=== PATIENT | male | born 1955 | race Caucasian/White ===

== ENCOUNTER 2017-01-21 21:12 | Inpatient (IN) | payer MEDICAID, SELFPAY ==
[~2017-01-21] VITALS: Ht 165.1 cm; Wt 69.0 kg
[2017-01-21] MEDS ORDERED: RISP2TAB3 PO (21:41)
[2017-01-21] MEDS ORDERED: SERT25TA PO (21:43)
[2017-01-21] MEDS ORDERED: AMBI5TAB PO (21:43)
[2017-01-21] MEDS ORDERED: ATOR1TAB21 PO (21:43)
[2017-01-21] MEDS ORDERED: [UNRECOGNIZED DRUG - OTHER] (21:43)
[2017-01-21] MEDS ORDERED: SENN8.6T54 PO (21:43)
[2017-01-21] MEDS ORDERED: SERT50TA PO (22:07)
[2017-01-22] MEDS ORDERED: MAALOX 30 ML SUSP *UDC PO PRN
[2017-01-22] MEDS ORDERED: MOM 30ML SUSPENSION UDC PO PRN
[2017-01-22 00:19] VITALS: BP 122/71
[2017-01-22] MEDS: PALIPERIDONE 3 MG ER TAB (INVEGA) PO SCH ×3 (01:25→21:12)
[2017-01-22] MEDS: traZODone 50 MG TAB PO PRN ×2 (01:25→21:13)
[2017-01-22] MEDS: ATORVASTATIN 20 MG TAB PO SCH ×2 (01:25→21:12)
[2017-01-22] MEDS: SENOKOT S TAB PO SCH ×3 (01:26→21:12)
[2017-01-22 06:20] VITALS: BP 91/53
[2017-01-22] MEDS: ACETAMINOPHEN TAB 650MG DOSE (2X325MG) PO PRN ×2 (08:12→15:48)
[2017-01-22] MEDS: SERTRALINE HCL 50 MG TAB PO SCH (08:12)
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
[2017-01-22] MEDS ORDERED: OLANZapine 5 MG TAB PO PRN (10:45)
[2017-01-22] MEDS ORDERED: LORazepam 1 MG TAB PO PRN (10:45)
[2017-01-22 18:00] VITALS: BP 97/60
--- NOTE | 2017-01-23 00:05 | HPE ---
DATE OF ADMISSION: 01/21/2017 HISTORY OF PRESENT ILLNESS: Please refer to psychiatric history and evaluation for further details on this admission. This examination and history is intended for medical issues, which may need treatment, followup or consult on this 61-year-old male who was transferred from [facility] ([facility]) after having expressed suicidal ideations. ALLERGIES: No known allergies. PRIMARY CARE PROVIDER: He states he does not have one. SOCIAL HISTORY: He is . He has two children. Ethyl alcohol (EtOH): He has not drank, he states, for years. Quit smoking several years ago. Denies any recreational drug use. PAST MEDICAL HISTORY: 1. He has a speech impairment. He is difficult to understand. 2. He has history of liver cancer. He shows the surgical scar for liver cancer in his left abdomen. 3. Schizophrenia. 4. Depression. 5. Hypercholesterolemia. PAST SURGICAL HISTORY: Surgery for liver cancer. FAMILY HISTORY: Noncontributory. HOME MEDICATIONS: - atorvastatin 20 mg by mouth daily - Colace 100 mg by mouth twice a day - Risperdal 2 mg by mouth twice a day - sertraline 50 mg by mouth daily - Ambien 5 mg by mouth nightly REVIEW OF SYSTEMS: 10-system review was done. Patient was complaining of severe pain in his right knee. He likes to walk and for a week he states he has been getting increasing pain with flexion, extension and weightbearing to the point where he is utilizing a cane. He did have an x-ray at [facility], which was negative. He has no recent history of trauma. Will order an MRI, rule out a tear. PHYSICAL EXAMINATION: 61-year-old cooperative male in no acute distress. Height 65 inches, weight 71 kg, body mass index (BMI) 26. Blood pressure 122/70, pulse 57, respirations 18, temperature 97.6. Patient is alert and oriented times three, has a speech impediment, difficult to understand. Pupils equal and react to light. Extraocular muscles intact. Cornea and sclerae clear. Conjunctivae were normal. No facial asymmetry. Pharynx, tongue and gums pink and moist. Tongue is midline. Neck is supple without lymphadenopathy. No thyromegaly, no goiter. Carotids 2+ without bruit. Chest clear to auscultation without wheeze or retraction. Heart is regular. Abdomen is benign. Bowel sounds positive. Genitourinary/rectal: Not done. Extremities show equal strength, full range of motion. No cyanosis, clubbing or edema. Pain in the right knee. No redness or swelling. Pain with flexion, extension and weightbearing. Peripheral pulses equal and palpable bilaterally. Skin is warm and dry. IMPRESSION/PLAN: 1. Psychiatric plan per psychiatry. 2. History of hypercholesterolemia. 3. Per patient, history of liver cancer with surgery. 4. History of speech impediment. 5. Schizophrenia. 6. Depression. 7. Pain in the right knee. Negative x-ray, will get an MRI. Rule out tear. No other acute medical issues.
[2017-01-23 06:19] VITALS: BP 119/74
[2017-01-23] MEDS: PALIPERIDONE 3 MG ER TAB (INVEGA) PO SCH ×2 (08:12→21:04)
[2017-01-23] MEDS: SERTRALINE HCL 50 MG TAB PO SCH (08:12)
[2017-01-23] MEDS: SENOKOT S TAB PO SCH ×2 (08:12→21:04)
[2017-01-23] MEDS: ACETAMINOPHEN TAB 650MG DOSE (2X325MG) PO PRN ×2 (08:13→17:47)
--- NOTE | 2017-01-23 11:10 | REP ---
MRI right knee without contrast: History: Pain with flexion extension. Question torn meniscus or ligament. Knee pain for 8 days. No comparison radiographs. Technique: Sagittal, axial, and coronal imaging planes utilized. T1, proton density and T2-weighted scans were obtained with and without fat saturation. MRI findings: There is an acute nondisplaced stress fracture in the medial femoral metaphysis with significant surrounding marrow edema and some adjacent extraosseous soft tissue edema. There is a small amount of joint fluid. There is a tiny Carlos's cyst. The patellar and quadriceps tendons are intact. Anterior and posterior cruciate ligaments have an intact appearance. There is no evidence of medial or lateral meniscal tear. Medial and lateral collateral ligamentous complexes appear intact. No articular cartilaginous defect is seen. Impression: Acute stress fracture distal femur involving the medial femoral metaphysis with extensive marrow edema and some adjacent extra osseous soft tissue edema. Small joint effusion. No evidence of internal derangement. Signed by Narciso Dunne MD 01/23/2017 03:04 P
--- NOTE | 2017-01-23 12:13 | MHIPNPDOC ---
[facility] Progress Note Progress Note DATE OF SERVICE: 01/23/17 HISTORY: day 2 of admission for SI with auditory hallucinations. Long h/o AK VITAL SIGNS: See below. NEW TEST RESULTS: . CURRENT MEDICATIONS: See below. MENTAL STATUS EXAMINATION: Patient is a 61-year old male, who is small framed, unshaven, dressed in hospital garb, long moustache, missing teeth, cooperative Speech: Is spontaneous but garbled due to poor dentition and lack of teeth, very hard to understand Language skills are not out of the ordinary but difficult to understand. Thought processes including: goal directed, no delusions Thought content: appropriate. Abstract reasoning, and computation: needs further assessment. Description of associations: needs further assessment. Description of abnormal or psychotic thoughts: having problems with auditory hallucinations that tell them they want to hurt him. He reports 4 voices. pt has suicidal ideation as well. Judgment: limited Insight: very limited. Orientation: needs further assessment Recent and remote memory: fair Attention span and concentration: good Fund of knowledge: limited Mood: euthymic. Affect: congruent. DIAGNOSES: 1. Schizophrenia 2. MDD, recurrent, severe with psychotic features. ASSESSMENT:pt continues to report symptoms consistent with what was stated on admission. Risperidone was changed to Invega, likely in consideration of using Invega Sustenna for stabilization and to reduce risk of overdose. Pt declines any injection and does not like needles. So far the rationale of 1 shot in 30 days versus taking pills everyday has not changed his mind. Pt appears to have limited understanding of everything asked of him. He is smiling and is cooperative with questions. He laughs appropriately. Pt states he has heard voices "all my life" MANAGEMENT PLAN:Will need to contact for collateral information and to help with plan of care. Enc socialization in milieu and group participation. Monitor response to meds with change to Invega. TIME SPENT: minutes. Vital Signs Vital Signs Date Time Temp Pulse Resp B/P (MAP) Pulse Ox O2 Delivery O2 Flow Rate FiO2 01/23/17 06:19 98.1 73 20 119/74 (89) 01/22/17 00:19 99 Room Air Current Medications Current Medications Acetaminophen (Tylenol Tab) 650 mg Q6HP PRN PO HEADACHE or DISCOMFORT Last administered on 01/23/17t 08:13; Start 01/22/17 at 00:00; Stop 02/21/17 at 00: 00 Al Hydrox/Mg Hydrox/Simethicone (Mylanta) 30 ml Q4HP PRN PO HEARTBURN/ INDIGESTION; Start 01/22/17 at 00:00; Stop 02/21/17 at 00:00 Atorvastatin Calcium (Lipitor) 20 mg QHS PO Last administered on 01/22/17 21: 12; Start 01/21/17 at 21:00; Stop 02/20/17 at 20:59 Home Med (Med Rec Complete!) ASDIRECTED XX ; Start 01/21/17 at 22:15; Stop at 22:15; Status DC Lorazepam (Ativan) 1 mg Q8HP PRN PO ANXIETY; Start 01/22/17 at 10:45; Stop 01/29/17 at 10:44 Magnesium Hydroxide (Milk Of Magnesia) 30 ml DAILYPRN PRN PO CONSTIPATION Last administered on 01/23/17 11:50; Start 01/22/17 at 00:00; Stop 02/21/17 at 00: 00 Olanzapine (ZyPREXA) 5 mg Q6HP PRN PO ANXIETY/AGITATION; Start 01/22/17 at 10: 45; Stop 02/21/17 at 10:44 Paliperidone (Invega) 3 mg BID PO Last administered on 01/23/17 08:12; Start 01/21/17 at 21:00; Stop 02/20/17 at 20:59 Senna/Docusate Sodium (Senokot S) 1 tab BID PO Last administered on 01/23/17 08:12; Start 01/21/17 at 21:00; Stop 02/20/17 at 20:59 Sertraline HCl (Zoloft) 50 mg DAILY PO Last administered on 01/23/17 08:12; Start 01/22/17 at 09:00; Stop 02/21/17 at 08:59 Trazodone HCl (Desyrel) 50 mg QHSP PRN PO INSOMNIA Last administered on 21:13; Start 01/22/17 at 00:00; Stop 02/21/17 at 00:00 Allergies Coded Allergies: No Known Allergies (Unverified , 01/21/17) Li Gerber Jan 23, 2017 12:13
--- NOTE | 2017-01-23 13:57 | REP ---
RIGHT KNEE SERIES: AP AND LATERAL VIEWS. History: Pain. Findings: AP and lateral views of the right knee demonstrate clothing artifact on the lateral radiograph. Bones, joints and soft tissues are otherwise unremarkable. IMPRESSION: No acute bony abnormality. Signed by Narciso Dunne MD 01/23/2017 03:07 P
[2017-01-23 18:13] VITALS: BP 115/70
[2017-01-23] MEDS: ATORVASTATIN 20 MG TAB PO SCH (21:04)
[2017-01-23] MEDS: traZODone 50 MG TAB PO PRN (21:04)
[2017-01-24 06:33] VITALS: BP 122/74
[2017-01-24] MEDS: ACETAMINOPHEN TAB 650MG DOSE (2X325MG) PO PRN (08:10)
[2017-01-24] MEDS: SERTRALINE 100 MG TAB PO SCH (08:10)
[2017-01-24] MEDS: SENOKOT S TAB PO SCH ×2 (08:10→20:52)
[2017-01-24] MEDS: PALIPERIDONE 3 MG ER TAB (INVEGA) PO SCH ×2 (08:10→20:52)
--- NOTE | 2017-01-24 08:22 | IPNPDOC ---
Date Seen The patient was seen on 01/24/17. Progress Note PCP: None ATTENDING: Dr. Jose Eduardo Liz HPI:61yoM admitted to [facility] for Schizophrenia, being medically examined today. Pt had reported Rt knee pain on admission. MRI was requested 01/23/17 indicating acute stress fracture. Orthopedics, Dr Ortega was consulted, discussed with Viktoriya Pandya NP who agreed they would see Pt. XR was requested as per orthopedics. Denies any fevers, chills, weakness, fatigue, RODRIGUEZ, CP, SOB, cough, palpitations, abdominal pain, N/V/D or changes in bowel or bladder habits. PMH 1. He has a speech impairment. 2. He has history of liver cancer. He shows the surgical scar for liver cancer in his left abdomen. 3. Schizophrenia. 4. Depression. 5. Hypercholesterolemia. PSH Surgery for liver cancer. PE: GEN: 61yoM, appears older than stated age. No acute distress. Pleasant, interactive. HEENT: Normocephalic, atraumatic. Conjunctiva without injection. Nose midline. No facial asymmetry. Moist mucous membranes. edentulous. CHEST: Regular rate and rhythm, +S1, +S2 LUNGS: Clear to auscultation bilaterally. ABD: Round, soft, non-tender, non-distended. +Bowel sounds throughout. No rebound or guarding. No costovertebral angle tenderness. EXT: Pulses 2+ bilaterally dorsalis pedis and radial. No lower extremity edema appreciated. SKIN: [place], dry, warm. Capillary refill <2sec. No rashes. NEURO: Pt is ambulating with a cane. No focal deficits appreciated. Speech is dysarthric. EKG: pending. MRI Rt Knee 01/23/17 Acute stress fracture distal femur involving the medial femoral metaphysis with extensive marrow edema and some adjacent extra osseous soft tissue edema. Small joint effusion. No evidence of internal derangement. XR Rt knee No acute bony abnormality. A&P: 61yoM admitted to [facility] for Schizophrenia 1. Psych. Plan per Psychiatry. btain baseline EKG to assure the safety of psychiatric medications as they can prolong the QT interval, pending. 2. Dyslipidemia. Continue Lipitor 20 mg daily. 3. Right knee pain. MRI right knee 01/23/17 reviewed. Discussed with orthopedics , Viktoriya Pandya NP. Orthopedics consulted, Dr. Ortega. 4. Follow up. No Primary Care Provider. Will attempt to establish PCP on discharge. 5. Staff member Jean present throughout exam. VS, I&O, 24H, Fishbone Vital Signs/I&O Vital Signs Date Time Temp Pulse Resp B/P (MAP) Pulse Ox O2 Delivery O2 Flow Rate FiO2 01/24/17 06:33 99.6 85 18 122/74 (90) Room Air 01/22/17 00:19 99 Jennifer Latham Jan 24, 2017 08:22
--- NOTE | 2017-01-24 09:09 | CR ---
DATE OF CONSULTATION: 01/24/2017 CHIEF COMPLAINT: Right knee pain. HISTORY OF PRESENT ILLNESS: Mr. Saenz has been [facility] with a diagnosis that includes schizophreni. He complains of knee pain. He has been using a cane. He complains of knee pain going on for approximately a week. He does not recall a specific injury. He has been walking with a cane. He was transferred in from [facility] after expressing suicidal ideation. NO KNOWN ALLERGIES. SOCIAL HISTORY: with two children. Does not drink and does not smoke. MEDICAL HISTORY: 1. Speech impediment. 2. Liver cancer. 3. Schizophrenia. 4. Depression. 5. Hypercholesterolemia. PAST SURGICAL HISTORY: Includes liver resection. FAMILY HISTORY: Not contributory. MEDICATIONS AT HOME (Include): - atorvastatin - Colace - Risperdal - sertraline - Ambien REVIEW OF SYSTEMS: He only complaining about right knee. He is not complaining about any shortness of breath, chest pain, abdominal pain, numbness or tingling. CLINICAL EXAMINATION: He is a 61-year-old gentleman who appears to be a bit older than his stated age. Mood and affect are flat, but he is pleasant and communicative. He is able ambulate with a cane favoring the right knee. He is not short of breath. The abdomen is not tender. The skin is healthy in the face, upper and lower extremities. Right lower extremity with tenderness around the medial femoral condyle. Warm, well-perfused lower extremity with a palpable dorsalis pedis pulse. Calves are soft and nontender. Plain films are negative. MRI suggests an acute stress fracture in the distal femur involving the medial femoral metaphysis and marrow edema. No meniscus tear. IMPRESSION: Stress fracture of previous injury to the knee, unknown etiology. RECOMMENDATIONS: We will coordinate with Wilson Collier of [facility] for a brace placement. The patient may wear an articulated supportive knee brace to protect the knee. I would suggest the patient use a walker for 50% weight bearing. Physical therapy will need to be involved in training the patient to effectively use the walker. For further details, please refer to the medical record.
--- NOTE | 2017-01-24 14:21 | MHIPNPDOC ---
[facility] Progress Note Progress Note DATE OF SERVICE: 01/24/17 HISTORY: day 3 of admission for AH and SI VITAL SIGNS: See below. NEW TEST RESULTS:MRI, PT EXAMINATION REQUESTED: Knee, Ap, Lat RIGHT REASON FOR PATIENT VISIT: SCHIZOPHRENIA WITH UNSPECIFIED DEPRESSIVE D/O REASON FOR EXAM/COMMENT: pain RIGHT KNEE SERIES: AP AND LATERAL VIEWS. History: Pain. Findings: AP and lateral views of the right knee demonstrate clothing artifact on the lateral radiograph. Bones, joints and soft tissues are otherwise unremarkable. IMPRESSION: No acute bony abnormality. Signed by Narciso Dunne MD 01/23/2017 03:07 P EXAMINATION REQUESTED: MRI-Knee WITHOUT CONTRAST RIGHT REASON FOR PATIENT VISIT: SCHIZOPHRENIA WITH UNSPECIFIED DEPRESSIVE D/O REASON FOR EXAM/COMMENT: pain with flexion and extention ,R/O torn menisus or ligamen MRI right knee without contrast: History: Pain with flexion extension. Question torn meniscus or ligament. Knee pain for 8 days. No comparison radiographs. Technique: Sagittal, axial, and coronal imaging planes utilized. T1, proton density and T2-weighted scans were obtained with and without fat saturation. MRI findings: There is an acute nondisplaced stress fracture in the medial femoral metaphysis with significant surrounding marrow edema and some adjacent extraosseous soft tissue edema. There is a small amount of joint fluid. There is a tiny Carlos's cyst. The patellar and quadriceps tendons are intact. Anterior and posterior cruciate ligaments have an intact appearance. There is no evidence of medial or lateral meniscal tear. Medial and lateral collateral ligamentous complexes appear intact. No articular cartilaginous defect is seen. Impression: Acute stress fracture distal femur involving the medial femoral metaphysis with extensive marrow edema and some adjacent extra osseous soft tissue edema. Small joint effusion. No evidence of internal derangement. CURRENT MEDICATIONS: See below. MENTAL STATUS EXAMINATION: Patient is a 61-year old male, who is small framed, unshaven, dressed in hospital garb, long moustache, missing teeth, cooperative, presently using a wheel chair due to femur fx. Speech: Is spontaneous but garbled due to poor dentition and lack of teeth, very hard to understand Language skills are not out of the ordinary but difficult to understand. Thought processes including: goal directed, no delusions Thought content: appropriate. Abstract reasoning, and computation: needs further assessment. Description of associations: needs further assessment. Description of abnormal or psychotic thoughts: having problems with auditory hallucinations that tell them they want to hurt him. He reports 4 voices. pt has suicidal ideation as well. Judgment: limited Insight: very limited. Orientation: needs further assessment Recent and remote memory: fair Attention span and concentration: good Fund of knowledge: limited Mood: euthymic. Affect: congruent. ASSESSMENT:scientific technical writer contacted Katy Avalos for additional information regarding Jose Eduardo. Apparently he had been free of AH on Risperidone and Sertraline. He did not stop his meds or run out of medication. The voices simply returned. Pt was seen at the [facility] Katy states she handles all his medications now so he does not have any access to them. She did this to stop the overdosing. She also assures me there are no weapons in the home. She states that Jose Eduardo spends his days watching movies he enjoys, he walks a lot he enjoys walking, he goes outside and visits with friends who live nearby. Her sister is also supportive of Jose Eduardo. Katy explained about his cancer surgeries. He had 1 kidney removed when he had lung cancer. There was a mass on the kidney as well. He has also had prostate cancer in addition to radiology for brain cancer. Pt was a smoker but did quit and no one in the home smokes. Jose Eduardo has been in remission since 2010 or 2011. Katy denies that Jose Eduardo has any type of developmental or intellectual delay. He quit school in the 10th grade. He is without teeth as that is his preference. He was born with speech problems. His mother is living but his father of prostate cancer. He has no interaction with his biological family. He was raised in [facility] and Katy believes he had a very unhappy childhood but denies abuse including physical or sexual. 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 He also broke a leg while he worked there and has a steel plate in his leg. Pt did miss appointments at [facility] which is why they discharged him. MANAGEMENT PLAN: will monitor effectiveness of Invega. Will titrate up gradually. Will consider resuming risperidone in higher dose than what he was previously taking. Pt remains adamant he does not want an injection. is managing his medications so fear of overdose is less with that in place. TIME SPENT: 25 minutes. Vital Signs Vital Signs Date Time Temp Pulse Resp B/P (MAP) Pulse Ox O2 Delivery O2 Flow Rate FiO2 01/24/17 06:33 99.6 85 18 122/74 (90) Room Air 01/22/17 00:19 99 Current Medications Current Medications Acetaminophen (Tylenol Tab) 650 mg Q6HP PRN PO HEADACHE or DISCOMFORT Last administered on 01/24/17 08:10; Start 01/22/17 at 00:00; Stop 02/21/17 at 00: 00 Al Hydrox/Mg Hydrox/Simethicone (Mylanta) 30 ml Q4HP PRN PO HEARTBURN/ INDIGESTION; Start 01/22/17 at 00:00; Stop 02/21/17 at 00:00 Atorvastatin Calcium (Lipitor) 20 mg QHS PO Last administered on 01/23/17 21: 04; Start 01/21/17 at 21:00; Stop 02/20/17 at 20:59 Home Med (Med Rec Complete!) ASDIRECTED XX ; Start 01/21/17 at 22:15; Stop at 22:15; Status DC Lorazepam (Ativan) 1 mg Q8HP PRN PO ANXIETY; Start 01/22/17 at 10:45; Stop 01/29/17 at 10:44 Magnesium Hydroxide (Milk Of Magnesia) 30 ml DAILYPRN PRN PO CONSTIPATION Last administered on 01/23/17 11:50; Start 01/22/17 at 00:00; Stop 02/21/17 at 00: 00 Olanzapine (ZyPREXA) 5 mg Q6HP PRN PO ANXIETY/AGITATION; Start 01/22/17 at 10: 45; Stop 02/21/17 at 10:44 Paliperidone (Invega) 3 mg BID PO Last administered on 01/24/17 08:10; Start 01/21/17 at 21:00; Stop 02/20/17 at 20:59 Senna/Docusate Sodium (Senokot S) 1 tab BID PO Last administered on 01/24/17 08:10; Start 01/21/17 at 21:00; Stop 02/20/17 at 20:59 Sertraline HCl (Zoloft) 50 mg DAILY PO Last administered on 01/23/17 08:12; Start 01/22/17 at 09:00; Stop 01/23/17 at 12:06; Status DC Sertraline HCl (Zoloft) 100 mg DAILY PO Last administered on 01/24/17 08:10; Start 01/24/17 at 09:00; Stop 02/23/17 at 08:59 Trazodone HCl (Desyrel) 50 mg QHSP PRN PO INSOMNIA Last administered on 21:04; Start 01/22/17 at 00:00; Stop 02/21/17 at 00:00 Allergies Coded Allergies: No Known Allergies (Unverified , 01/21/17) Li Gerber Jan 24, 2017 14:21
[2017-01-24 18:00] VITALS: BP 130/62
--- NOTE | 2017-01-24 20:10 | ECGEPIP ---
Stationary ECG Study [facility] Test Date: 2017-01-23 Pat Name: GE BAIRD Department: Room: [place] [address] Gender: M Medical Imaging Technologist: OPAL : 1955 Requested By: Asuncion Lo [facility] Order Number: [id number] Reading MD: Juventino Zapata Measurements Intervals [place] Rate: 72 P: 69 [place]: 146 QRS: 33 QRSD: 78 T: 57 QT: 369 QTc: 404 Interpretive Statements SINUS RHYTHM NO PRIOR Electronically Signed On 01-24-2017 20:10:05 EDT by Juventino Zapata
[2017-01-24] MEDS: ATORVASTATIN 20 MG TAB PO SCH (20:52)
[2017-01-24] MEDS: traZODone 50 MG TAB PO PRN (20:52)
[2017-01-25 06:39] VITALS: BP 119/72
[2017-01-25] MEDS: PALIPERIDONE 3 MG ER TAB (INVEGA) PO SCH (08:11)
[2017-01-25] MEDS: SERTRALINE 100 MG TAB PO SCH (08:11)
[2017-01-25] MEDS: SENOKOT S TAB PO SCH ×2 (08:12→21:19)
[2017-01-25] MEDS: ACETAMINOPHEN TAB 650MG DOSE (2X325MG) PO PRN ×3 (08:14→21:54)
--- NOTE | 2017-01-25 11:03 | MHIPNPDOC ---
[facility] Progress Note Progress Note DATE OF SERVICE: 01/25/17 HISTORY: day 4 of admission for AH with SI VITAL SIGNS: See below. NEW TEST RESULTS: EKG: Stationary ECG Study [facility] Test Date: 2017-01-23 Pat Name: GE BAIRD Department: Room: P4622-15 Gender: M Ux Design Manager: OPAL : 1955 Requested By: Asuncion Lo [facility] Order Number: [id number] Reading MD: Juventino Zapata Measurements Intervals [place] Rate: 72 P: 69 [place]: 146 QRS: 33 QRSD: 78 T: 57 QT: 369 QTc: 404 Interpretive Statements SINUS RHYTHM NO PRIOR Electronically Signed On 01-24-2017 20:10:05 EDT by Juventino Zapata DD: Juventino Zapata MD 01/23/17 1416 CURRENT MEDICATIONS: See below. MENTAL STATUS EXAMINATION: Patient is a 61-year old male, who is small framed, unshaven, dressed in hospital garb, long moustache, missing teeth, cooperative, presently using a wheel chair due to femur fx. Speech: Is spontaneous but garbled due to poor dentition and lack of teeth, very hard to understand Language skills are not out of the ordinary but difficult to understand. Thought processes including: goal directed, no delusions Thought content: appropriate. Abstract reasoning, and computation: needs further assessment. Description of associations: needs further assessment. Description of abnormal or psychotic thoughts: having problems with auditory hallucinations that tell them they want to hurt him. He reports 4 voices. pt has suicidal ideation as well. Judgment: limited Insight: very limited. Orientation: well oriented x 4. Recent and remote memory: fair Attention span and concentration: good Fund of knowledge: limited Mood: euthymic. Affect: congruent. ASSESSMENT:pt is pleasant and in good spirits. He looks less tired than yesterday. His eyes are no longer red and watery. He reports good sleep. He also indicates voices continue to bother him and tell him they will harm him. Pt is visible in milieu, needs to shave and is willing to do so with assistance. Pt attends some programming. He talks to via phone regularly. Pt has his knee brace on right knee. States it feels better. Was informed by staff that pt has urinated and defecated in his shoes. MANAGEMENT PLAN: continue Invega titration from 3 mg bid to 3 mg in a.m. and 6 mg at hs. EKG on 01/23 shows QTc of 404, very good. Will repeat after he has several doses of invega totalling 9 mg daily. also using trazodone for insomnia. Continue supportive care. Medications for EPS and akathesia added if necessary. Investigate report about his shoes. TIME SPENT: 15 minutes. Vital Signs Vital Signs Date Time Temp Pulse Resp B/P (MAP) Pulse Ox O2 Delivery O2 Flow Rate FiO2 01/25/17 06:39 98.2 80 18 119/72 (88) 01/24/17 06:33 Room Air 01/22/17 00:19 99 Current Medications Current Medications Acetaminophen (Tylenol Tab) 650 mg Q6HP PRN PO HEADACHE or DISCOMFORT Last administered on 01/25/17 08:14; Start 01/22/17 at 00:00; Stop 02/21/17 at 00: 00 Al Hydrox/Mg Hydrox/Simethicone (Mylanta) 30 ml Q4HP PRN PO HEARTBURN/ INDIGESTION; Start 01/22/17 at 00:00; Stop 02/21/17 at 00:00 Atorvastatin Calcium (Lipitor) 20 mg QHS PO Last administered on 01/24/17 20: 52; Start 01/21/17 at 21:00; Stop 02/20/17 at 20:59 Home Med (Med Rec Complete!) ASDIRECTED XX ; Start 01/21/17 at 22:15; Stop at 22:15; Status DC Lorazepam (Ativan) 1 mg Q8HP PRN PO ANXIETY; Start 01/22/17 at 10:45; Stop 01/29/17 at 10:44 Magnesium Hydroxide (Milk Of Magnesia) 30 ml DAILYPRN PRN PO CONSTIPATION Last administered on 01/23/17 11:50; Start 01/22/17 at 00:00; Stop 02/21/17 at 00: 00 Olanzapine (ZyPREXA) 5 mg Q6HP PRN PO ANXIETY/AGITATION; Start 01/22/17 at 10: 45; Stop 02/21/17 at 10:44 Paliperidone (Invega) 3 mg BID PO Last administered on 01/25/17 08:11; Start 01/21/17 at 21:00; Stop 01/25/17 at 10:58; Status DC Paliperidone (Invega) 3 mg QAM PO ; Start 01/26/17 at 09:00; Stop 02/20/17 at 20:59; Status UNV Paliperidone (Invega) 6 mg QHS PO ; Start 01/25/17 at 21:00; Stop 02/24/17 at 20 :59; Status UNV Senna/Docusate Sodium (Senokot S) 1 tab BID PO Last administered on 01/25/17 08:12; Start 01/21/17 at 21:00; Stop 02/20/17 at 20:59 Sertraline HCl (Zoloft) 50 mg DAILY PO Last administered on 01/23/17 08:12; Start 01/22/17 at 09:00; Stop 01/23/17 at 12:06; Status DC Sertraline HCl (Zoloft) 100 mg DAILY PO Last administered on 01/25/17 08:11; Start 01/24/17 at 09:00; Stop 02/23/17 at 08:59 Trazodone HCl (Desyrel) 50 mg QHSP PRN PO INSOMNIA Last administered on 20:52; Start 01/22/17 at 00:00; Stop 02/21/17 at 00:00 Allergies Coded Allergies: No Known Allergies (Unverified , 01/21/17) Li Gerber Jan 25, 2017 11:03
[2017-01-25] MEDS ORDERED: PROPRANOLOL 10 MG TAB PO PRN (11:15)
[2017-01-25] MEDS ORDERED: BENZTROPINE 1 MG TAB PO PRN (11:15)
[2017-01-25 18:54] VITALS: BP 129/77
[2017-01-25] MEDS: PALIPERIDONE 6 MG ER TAB (INVEGA) PO SCH (21:19)
[2017-01-25] MEDS: ATORVASTATIN 20 MG TAB PO SCH (21:19)
[2017-01-26 07:00] VITALS: BP 121/76
[2017-01-26] MEDS: PALIPERIDONE 3 MG ER TAB (INVEGA) PO SCH (08:00)
[2017-01-26] MEDS: SERTRALINE 100 MG TAB PO SCH (08:00)
[2017-01-26] MEDS: SENOKOT S TAB PO SCH ×2 (08:00→21:15)
[2017-01-26] MEDS: ACETAMINOPHEN TAB 650MG DOSE (2X325MG) PO PRN ×3 (08:02→22:18)
[2017-01-26 18:00] VITALS: BP 123/78
[2017-01-26] MEDS: traZODone 50 MG TAB PO PRN (21:15)
[2017-01-26] MEDS: PALIPERIDONE 6 MG ER TAB (INVEGA) PO SCH (21:15)
[2017-01-26] MEDS: ATORVASTATIN 20 MG TAB PO SCH (21:15)
[2017-01-27 06:23] VITALS: BP 119/62
[2017-01-27] MEDS: PALIPERIDONE 3 MG ER TAB (INVEGA) PO SCH ×3 (08:22→21:13)
[2017-01-27] MEDS: ACETAMINOPHEN TAB 650MG DOSE (2X325MG) PO PRN ×2 (08:22→15:27)
[2017-01-27] MEDS: SERTRALINE 100 MG TAB PO SCH (08:22)
[2017-01-27] MEDS: SENOKOT S TAB PO SCH ×2 (08:22→21:13)
--- NOTE | 2017-01-27 12:49 | MHIPNPDOC ---
[facility] Progress Note Progress Note DATE OF SERVICE: 01/27/17 HISTORY: day 6 of admission for schizophrenia decompensation VITAL SIGNS: See below. NEW TEST RESULTS: na CURRENT MEDICATIONS: See below. MENTAL STATUS EXAMINATION: Patient is a 61-year old male, who is small framed, shaved with moustache, dressed in hospital garb, missing teeth, cooperative, ambulating with walker and leg brace. Speech: Is spontaneous but garbled due to poor dentition and lack of teeth, very hard to understand Language skills are not out of the ordinary but difficult to understand. Thought processes including: goal directed, no delusions Thought content: appropriate. Abstract reasoning, and computation: needs further assessment. Description of associations: needs further assessment. Description of abnormal or psychotic thoughts: having problems with auditory hallucinations that tell them they want to hurt him. He reports 4 voices. pt has suicidal ideation as well. Judgment: limited Insight: very limited. Orientation: well oriented x 4. Recent and remote memory: fair Attention span and concentration: good Fund of knowledge: limited Mood: euthymic. Affect: congruent. DIAGNOSES: 1. Schizophrenia 2. MDD, recurrent, severe with psychotic features. ASSESSMENT:pt always out of room in milieu. Seems to enjoy the social aspect of being on the unit. Pleasant at each interaction. Continues to report AH mostly in afternoon. Reports good sleep. Shaved and looks much improved with that out of the way. Ambulating with walker and leg brace on. Still having knee pain. promotion writer clarified report about defecating and urinating in shoes/clothing by talking with Nurse Suction Roller who actually assisted the pt at that time. The stool and urine were dried and old, not fresh. Underwear looked like it had not been cleaned in some time. Pt was given new underwear. MANAGEMENT PLAN: change Invega 3 mg to TID. monitor for effectiveness. recheck EKG prior to discharge. If pts symptoms are reduced on Monday will plan discharge for early next week. No family meeting as cannot come in but we will talk with her via phone about the medication changes. TIME SPENT: 15 minutes. Vital Signs Vital Signs Date Time Temp Pulse Resp B/P (MAP) Pulse Ox O2 Delivery O2 Flow Rate FiO2 01/27/17 06:23 97.7 72 18 119/62 (81) Room Air 01/22/17 00:19 99 Current Medications Current Medications Acetaminophen (Tylenol Tab) 650 mg Q6HP PRN PO HEADACHE or DISCOMFORT Last administered on 01/27/17 08:22; Start 01/22/17 at 00:00; Stop 02/21/17 at 00: 00 Al Hydrox/Mg Hydrox/Simethicone (Mylanta) 30 ml Q4HP PRN PO HEARTBURN/ INDIGESTION; Start 01/22/17 at 00:00; Stop 02/21/17 at 00:00 Atorvastatin Calcium (Lipitor) 20 mg QHS PO Last administered on 01/26/17 21: 15; Start 01/21/17 at 21:00; Stop 02/20/17 at 20:59 Benztropine Mesylate (Cogentin) 1 mg BID PRN PO EPS; Start 01/25/17 at 11:15; Stop 02/24/17 at 11:14 Home Med (Med Rec Complete!) ASDIRECTED XX ; Start 01/21/17 at 22:15; Stop at 22:15; Status DC Lorazepam (Ativan) 1 mg Q8HP PRN PO ANXIETY; Start 01/22/17 at 10:45; Stop 01/29/17 at 10:44 Magnesium Hydroxide (Milk Of Magnesia) 30 ml DAILYPRN PRN PO CONSTIPATION Last administered on 01/23/17 11:50; Start 01/22/17 at 00:00; Stop 02/21/17 at 00: 00 Olanzapine (ZyPREXA) 5 mg Q6HP PRN PO ANXIETY/AGITATION; Start 01/22/17 at 10: 45; Stop 02/21/17 at 10:44 Paliperidone (Invega) 3 mg BID PO Last administered on 01/25/17 08:11; Start 01/21/17 at 21:00; Stop 01/25/17 at 10:59; Status DC Paliperidone (Invega) 3 mg QAM PO Last administered on 01/27/17 08:22; Start 01/26/17 at 09:00; Stop 02/20/17 at 20:59 Paliperidone (Invega) 6 mg QHS PO Last administered on 01/26/17 21:15; Start 01/25/17 at 21:00; Stop 02/24/17 at 20:59 Propranolol HCl (Inderal) 10 mg Q6H PRN PO Akathesia; Start 01/25/17 at 11:15; Stop 02/24/17 at 11:14 Senna/Docusate Sodium (Senokot S) 1 tab BID PO Last administered on 01/27/17 08:22; Start 01/21/17 at 21:00; Stop 02/20/17 at 20:59 Sertraline HCl (Zoloft) 50 mg DAILY PO Last administered on 01/23/17 08:12; Start 01/22/17 at 09:00; Stop 01/23/17 at 12:06; Status DC Sertraline HCl (Zoloft) 100 mg DAILY PO Last administered on 01/27/17 08:22; Start 01/24/17 at 09:00; Stop 02/23/17 at 08:59 Trazodone HCl (Desyrel) 50 mg QHSP PRN PO INSOMNIA Last administered on 21:15; Start 01/22/17 at 00:00; Stop 02/21/17 at 00:00 Allergies Coded Allergies: No Known Allergies (Unverified , 01/21/17) Li Gerber Jan 27, 2017 12:48
[2017-01-27 18:00] VITALS: BP 121/71
[2017-01-27] MEDS: traZODone 50 MG TAB PO PRN (21:13)
[2017-01-27] MEDS: ATORVASTATIN 20 MG TAB PO SCH (21:13)
[2017-01-28 06:57] VITALS: BP 135/66
[2017-01-28] MEDS: SENOKOT S TAB PO SCH ×2 (08:07→21:29)
[2017-01-28] MEDS: SERTRALINE 100 MG TAB PO SCH (08:08)
[2017-01-28] MEDS: PALIPERIDONE 3 MG ER TAB (INVEGA) PO SCH ×3 (08:08→21:29)
[2017-01-28] MEDS: ACETAMINOPHEN TAB 650MG DOSE (2X325MG) PO PRN ×3 (08:08→21:30)
[2017-01-28] MEDS: traZODone 50 MG TAB PO PRN (21:29)
[2017-01-28] MEDS: ATORVASTATIN 20 MG TAB PO SCH (21:29)
[2017-01-29 06:38] VITALS: BP 124/63
[2017-01-29] MEDS: SERTRALINE 100 MG TAB PO SCH (07:57)
[2017-01-29] MEDS: SENOKOT S TAB PO SCH ×2 (07:57→21:35)
[2017-01-29] MEDS: PALIPERIDONE 3 MG ER TAB (INVEGA) PO SCH ×3 (07:57→21:35)
[2017-01-29] MEDS: ACETAMINOPHEN TAB 650MG DOSE (2X325MG) PO PRN ×3 (07:57→21:36)
[2017-01-29 18:00] VITALS: BP 95/56
[2017-01-29] MEDS: ATORVASTATIN 20 MG TAB PO SCH (21:35)
[2017-01-30 07:06] VITALS: BP 118/71
[2017-01-30] MEDS: SENOKOT S TAB PO SCH (08:07)
[2017-01-30] MEDS: SERTRALINE 100 MG TAB PO SCH (08:07)
[2017-01-30] MEDS: PALIPERIDONE 3 MG ER TAB (INVEGA) PO SCH (08:07)
[2017-01-30] MEDS: ACETAMINOPHEN TAB 650MG DOSE (2X325MG) PO PRN (08:09)
[2017-01-30] MEDS ORDERED: PALI1TAB2 PO (09:37)
[2017-01-30] MEDS ORDERED: ZOLO100T PO (09:37)
[2017-01-30] MEDS ORDERED: PROP10TAB PO (09:37)
[2017-01-30] MEDS ORDERED: BENZ-52 PO (09:37)
[2017-01-30] MEDS ORDERED: TRAZO50TA PO (09:37)
[2017-01-30] MEDS ORDERED: [UNRECOGNIZED DRUG - OTHER] XX ×2 (12:01→12:05)
--- NOTE | 2017-01-30 17:15 | MHDSPDOC ---
[facility] Discharge Summary Discharge Summary DATE OF ADMISSION: Jan 21, 2017 at 23:33 DATE OF DISCHARGE: Jan 30, 2017 at 14:10 DISCHARGE DIAGNOSES: 1. Schizophrenia, paranoid, chronic 2. MDD recurrent severe, with psychotic features. REASON FOR ADMISSION: pt was having auditory hallucinations indicating they would harm him CONSULTANTS INVOLVED: PT, pharmacy, lab, MRI, EKG, nursing, medicine, Psychiatry TREATMENT AND PROGRESS ON THE UNIT : Pt arrived with knee pain and needed an MRI which showed fx at the distal portion articulating with knee. PT evaluated weight bearing and pt used a wheel chair until brace was fitted and walker given. Pt offered L[facility]A but declined despite several days of trying to convince him of the benefits. Pt ate well and was well liked by staff. He as cooperative with attending groups. HOSPITAL COURSE:pt arrived with poor hygiene but he shaved on the unit and showered. His under clothes were old and stained so they were replaced. He appears to have problems taking care of her personal hygiene. is going to assist at home. Pt's medication was changed from Risperidone to Invega in hopes he would accept the injection but that never happened. He continued to report voices everyday of his admission until the day of discharge. DISCHARGE ASSESSMENT: We changed the Invega to tid which according to pt helped eliminate auditory disturbances. He denied hearing voices after this intervention. He reported this to his and his sister in law. He agreed to outpatient follow up at [facility]. appts were made for this as well as medical follow up for his leg. he was provided a script for a walker for him to obtain for use at home. Refund Specialist spoke with , who could not come in for family meeting, about medication changes. Reviewed what was stopped and what was added. What is daily and what is prn. Answered all questions. MENTAL STATUS EXAMINATION ON DISCHARGE: Patient is a 61-year old male, who is small framed, shaved with moustache, dressed in hospital garb, missing teeth, cooperative, ambulating with walker and leg brace. Speech: Is spontaneous but garbled due to poor dentition and lack of teeth, very hard to understand Language skills are not out of the ordinary but difficult to understand. Thought processes including: goal directed, no delusions Thought content: appropriate. Abstract reasoning, and computation: needs further assessment. Description of associations: needs further assessment. Description of abnormal or psychotic thoughts: having problems with auditory hallucinations that tell them they want to hurt him. He reports 4 voices. pt has suicidal ideation as well. Judgment: limited Insight: very limited. Orientation: well oriented x 4. Recent and remote memory: fair Attention span and concentration: good Fund of knowledge: limited Mood: euthymic. Affect: congruent. MEDICATIONS ON DISCHARGE: - Invega tid for schizophrenia - Cogentin for EPs. - Propranolol for akathesia. -sertraline 100 mg for depression PLAN/FOLLOWUP ARRANGEMENTS: [facility] & PCP The amount of time spent in the coordination of care for this patient was approximately 45 minutes. Vital Signs/I&Os Vital Signs Date Time Temp Pulse Resp B/P (MAP) Pulse Ox O2 Delivery O2 Flow Rate FiO2 01/30/17 07:06 97.9 72 16 118/71 (87) Room Air Medications Scheduled Atorvastatin Calcium (Atorvastatin Calcium) 20 Mg Tab, 20 MG PO QHS, (Reported) Docusate Sod/Senna (Senna-Plus 8.6-50 mg) 1 Tab Tab, 1 TAB PO BID, (Reported) Paliperidone (Paliperidone ER) 3 Mg Tab, 3 MG PO TID for schizophrenia for 7 Days, #21 1 tablet 3 times daily, morning, noon and night. Sertraline Hcl (Zoloft) 100 Mg Tab, 100 MG PO DAILY for DEPRESSION for 7 Days, # 7 Scheduled PRN Benztropine Mesylate (Benztropine Mesylate) 1 Mg Tab, 1 MG PO BID PRN for EPS for 7 Days, #14 Propranolol HCl (Propranolol HCl) 10 Mg Tab, 10 MG PO Q6H PRN for Akathesia for 7 Days, #28 take 1 q 6 hours for internal restlessness, unable to sit still, have to move all the time. Trazodone HCl (Trazodone HCl) 50 Mg Tab, 50 MG PO QHSP PRN for INSOMNIA for 7 Days, #7 take if needed for insomnia/lack of sleep. Allow 9-10 hours for sleeping. Allergies Coded Allergies: No Known Allergies (Unverified , 01/21/17) Li Gerber Jan 30, 2017 17:15
== END 2017-01-30 14:10 | disposition home or self-care (01) | DRG 750 ==
LOC: M ED 21:12 → M ED INP 23:33 → M PSY 01-22 00:16
PROVIDERS: ADMIT Psychiatry & Neurology Psychiatry; ATTEND Psychiatry & Neurology Psychiatry
DX: F20.0 Paranoid schizophrenia (principal); F33.3 Major depressive disorder, recurrent, severe with psychotic symptoms; R47.9 Unspecified speech disturbances; E78.5 Hyperlipidemia, unspecified; E78.00 Pure hypercholesterolemia, unspecified; Z79.899 Other long term (current) drug therapy; Z87.891 Personal history of nicotine dependence; Z85.05 Personal history of malignant neoplasm of liver; M84.351A Stress fracture, right femur, initial encounter for fracture; X58.XXXA Exposure to other specified factors, initial encounter; Y99.9 Unspecified external cause status